=== PATIENT | male | born 1965 | race Two or more races ===

== ENCOUNTER 2023-11-23 20:35 | Emergency (ER) | payer OTHER, SELFPAY ==
[2023-11-23 20:40] VITALS: BP 124/91
--- NOTE | 2023-11-23 21:13 | ED.GENMED ---
History of Present Illness
General
Chief Complaint: Ear Problem
Source: patient
Exam Limitations: none
Time Seen by Provider: 11/23/23 20:52
Nursing documentation reviewed up to this point in time: agreed with
History of Present Illness
History of Present Illness:
Patient is a 58-year-old male who presented to the ER for evaluation of right ear pain for the past 2 days. Patient was recently on vacation swimming in [facility] and since then developed pain. He reports he had this in the past and was seen
here last summer after vacation and swimming. He complains of subjective fevers. Denies ear drainage.
Past History
Past History
ED Past Medical History: HTN
ED Past Surgical History: None
Social History
Tobacco: Non-smoker
Alcohol: Occasional
Drug: None
Personal:
Living: with family
Employment: Employed
Family History
Family History: Hypertension
Review of Systems
Review of Systems
Allergies reviewed?: Yes
All Other Systems: ROS reviewed and negative except as documented in HPI and ROS
Constitutional: Reports fever (subjective fevers )
EENT: Reports other (right ear pain denies drainage )
Cardiac: Reports no symptoms; Denies chest pain
ABD/GI: Reports no symptoms
: Reports no symptoms
Skin: Reports no symptoms
Neurological: Reports no symptoms; Denies headache
Hematologic/Lymphatic: Reports no symptoms
Psychiatric: Reports no symptoms
Phy Exam
General Physical Exam
General Presentation: no apparent distress
General age: appears stated age
General Skin: warm and dry
General Habitus: normal
General Mental: alert
General Hydration: appears well hydrated
ENT Exam
ENT Exam: EOMI, neck supple and other (Left canal is clear TM unremarkable right canal is very swollen unable to visualize TM tender to tragus no drainage )
Neurological Exam
Neurological Exam: alert and oriented x3
Musculoskeletal Exam
Musculoskeletal Exam: full ROM
Skin Exam
Skin Exam: normal color and warm/dry
Psychiatric Exam
Psychiatric Exam: normal mood/affect
Course
Orders/Labs/Results
Orders:
Orders
11/23/23 21:14
Neomycin/Polymyxin/Hc [Cortisporin Otic Suspension] See Dose Instructions OTIC NOW STA
11/23/23 21:23
Amoxicillin 875 mg/Clav 125 mg [Augmentin 875 mg/125 mg] 1 tablet PO NOW STA
Vital Signs
Initial and Last Documented VS:
Initial Vital Signs
Temp Pulse Resp BP Pulse Ox
98.3 F 72 18 124/91 97
11/23/23 20:40 11/23/23 20:40 11/23/23 20:40 11/23/23 20:40 11/23/23 20:40
Last Documented Vital Signs
Temp Pulse Resp BP Pulse Ox
98.3 F 72 18 124/91 97
11/23/23 20:40 11/23/23 20:40 11/23/23 20:40 11/23/23 20:40 11/23/23 20:40
Procedures
Other
Indication for procedure:: Acute otitis externa
Additional Procedure:
Ear wick inserted into right ear and Cortisporin eardrops inserted
MDM/Problems Addressed
Differential Diagnosis Includes:
Not limited to otitis media otitis externa less likely mastoiditis
MDM/Problems Addressed:
Symptoms are consistent with otitis externa. Patient is nontender over mastoid afebrile nontoxic. I am unable to visualize TM. no bony mastoid tenderness . With extent of ear canal swelling will insert ear wick treat with Cortisporin drops
Augmentin outpatient follow-up family doctor and ENT.
Discussed with patient that he may remove ear wick in the next 1 to 2 days. First dose of Cortisporin drops along with Augmentin was given here in the ER
*Pulse Oximetry
Patient hypoxic: no
*Critical Care Note
Total Time (30-74mins, 75-104mins- exclusive of procedures): Not Applicable
ED Attending Note
-
Portions of this chart may have been created with voice recognition software.� Occasional wrong word or��sound alike� substitutions may have occurred due to the inherent limitations of voice recognition software.
Discharge Plan
Departure
Patient Disposition: Home (Routine Discharge)
Date of Disposition: 11/23/23
Time of Disposition: 21:50
Patient with high blood pressure during this ER visit?: Yes
Condition: Fair
Covid-19: Not Applicable
Discharge Problem:
Otitis externa
Instructions: Outer Ear Infection (DC), Outer Ear Infection ED, BLOOD PRESSURE
Prescriptions:
New
amoxicillin-pot clavulanate 875-125 mg tablet
1 tab PO BID Qty: 14 0RF
No Action
metoprolol succinate 50 mg Tablet Extended Release 24 Hr
50 mg PO DAILY
amoxicillin-pot clavulanate 875-125 mg tablet
1 tab PO Q12H Qty: 20 0RF
Referrals:
Ammon Grove MD [Active] -
Activity Restrictions/Additional Instructions:
As discussed use antibiotic eardrops 4 drops in right ear 4 times daily. You may remove ear wick in the next 24 to 48 hours. Antibiotic is to be taken twice a day for the next week. Follow-up closely with family doctor in the next several
days/ear nose and throat specialty if needed. Return to the ER if any worsening of symptoms or increased pain swelling fever chills.
Interventions
Interventions:
*Risk Screen - Suicide Last Done: 11/23/23 21:49
*General Assessment Last Done: 11/23/23 21:49
*Neglect/Abuse Screening Last Done: 11/23/23 21:49
ED- Fall Risk Assessment Last Done: 11/23/23 20:52
*ED COVID-19 Vaccine History Last Done: 11/23/23 21:46
*Nursing Disposition Last Done: 11/23/23 22:10
Discharge Date and Time
Discharge Date/Time: 11/23/23 22:18
Print Language: SALVADORE[place]
[2023-11-23] MEDS: AUGMENTIN 875 MG/125 MG 1 TABLET PO (21:47)
[2023-11-23] MEDS: CORTISPORIN OTIC SUSPENSION 3 DROP OTIC (21:48)
== END 2023-11-23 22:18 | disposition home or self-care (01) ==
LOC: EMR 20:35
PROVIDERS: EMERGENCY PHYSICIAN Emergency Medicine; FAMILY PHYSICIAN Family Medicine
DX: H60.91 Unspecified otitis externa, right ear (principal); I10 Essential (primary) hypertension; Z82.49 Family history of ischemic heart disease and other diseases of the circulatory system
CPT/HCPCS: 99282